=== PATIENT | female | born 1980 | race Caucasian/White ===

== ENCOUNTER → 2016-10-14 | Outpatient (CLI) | payer BC ==
[~2016-10-14] MED LIST: CEPHALEXIN250 M1; DEPO-PROVER150 MG/M1 IM; DITROPAN XL 5MG5 M1; KLONOPIN 1MG1 MG PO; LAMICTAL200 MG PO; MAXALT10 MG; TOPAMAX 100MG100 M1; VALIUM 5MG T5 MG/TAB; WELLBUTRIN XL300 M1 PO
== END ==
LOC: BHSO 15:48
DX: F31.74 Bipolar disorder, in full remission, most recent episode manic (principal)

== ENCOUNTER → 2017-01-01 | Outpatient (CLI) | payer BC | LOC: BHSO 15:52 | DX: F31.74 Bipolar disorder, in full remission, most recent episode manic (principal) ==

== ENCOUNTER → 2017-07-21 | Outpatient (CLI) | payer BC | LOC: BHSO 08:47 | DX: F41.1 Generalized anxiety disorder (principal) | CPT/HCPCS: G0463 ==

== ENCOUNTER → 2017-11-18 | Outpatient (CLI) | payer BC | LOC: BHSO 15:53 | DX: F31.81 Bipolar II disorder (principal) | CPT/HCPCS: G0463 ==

== ENCOUNTER → 2018-01-04 | Outpatient (CLI) | payer BC | LOC: BHSO 07:54 | DX: F31.81 Bipolar II disorder (principal) | CPT/HCPCS: G0463 ==

== ENCOUNTER → 2018-04-07 | Outpatient (CLI) | payer BC | LOC: BHSO 16:22 | DX: F31.81 Bipolar II disorder (principal) | CPT/HCPCS: G0463 ==

== ENCOUNTER → 2018-10-06 | Outpatient (CLI) | payer BC | LOC: BHSO 16:33 | DX: F31.81 Bipolar II disorder (principal) | CPT/HCPCS: G0463 ==

== ENCOUNTER → 2019-01-02 | Outpatient (CLI) | payer BC | LOC: BHSO 16:19 | DX: F31.81 Bipolar II disorder (principal) | CPT/HCPCS: G0463 ==

== ENCOUNTER → 2019-03-28 | Outpatient (CLI) | payer BC | LOC: BHSO 11:18 | DX: F31.81 Bipolar II disorder (principal) | CPT/HCPCS: G0463 ==

== ENCOUNTER → 2019-05-01 | Outpatient (CLI) | payer BC | LOC: BHSO 11:34 | DX: F31.81 Bipolar II disorder (principal) | CPT/HCPCS: G0463 ==